=== PATIENT | female | born 1935 | race Caucasian/White ===

== ENCOUNTER 2017-01-18 14:23 | Emergency (ER) | payer OTHER ==
[~2017-01-18] VITALS: Ht 160 cm; Wt 75.0 kg
[~2017-01-18 14:23] MED LIST: ASCO500T8 PO; CA C1TAB28 PO; CALC500T93 PO; COENZYME Q10 21 EACH PO; EZET1TAB35 PO; LISI-467 PO; METF10002 PO; METF500T4 PO; MULT-257 PO; OMEG1CAP34 PO; TRAM50TA2 PO; VIT E PO; [UNRECOGNIZED DRUG - OTHER] PO; magnesium PO; zinc PO
[2017-01-18 14:44] VITALS: BP 144/86
[2017-01-18] MEDS ORDERED: LIDOCAINE 1%, 20ML ONE (15:02)
[2017-01-18] MEDS ORDERED: DIPH,PERTUSS(ACELL),TET VAC/PF 0.5 ML IM-VACC ONE ×2 (15:27→15:30)
[2017-01-18] MEDS ORDERED: LIDOCAINE 1%, 20ML SQ ONE (15:30)
[2017-01-18] MEDS ORDERED: BACITRACIN ZINC OINT 500U/GM, 0.9 GM ONE (16:49)
== END 2017-01-18 17:58 | disposition home or self-care (01) ==
LOC: ED 17:49
DX: S01.81XA Laceration without foreign body of other part of head, initial encounter (principal); S51.812A Laceration without foreign body of left forearm, initial encounter; S50.312A Abrasion of left elbow, initial encounter; I10 Essential (primary) hypertension; E11.9 Type 2 diabetes mellitus without complications; W01.198A Fall on same level from slipping, tripping and stumbling with subsequent striking against other object, initial encounter; Y93.89 Activity, other specified; Y92.89 Other specified places as the place of occurrence of the external cause; Y99.8 Other external cause status
CPT/HCPCS: 12001; 12013; 70450; 70486; 90471; 90715

== ENCOUNTER 2018-10-05 11:54 | Inpatient (IN) | payer MEDICARE ==
[~2018-10-05] VITALS: Ht 160 cm; Wt 81.7 kg
[2018-10-05 11:50] VITALS: BP 159/92
[~2018-10-05 11:54] MED LIST changes: +METF500T17 PO; -METF500T4 PO
[2018-10-05] MEDS ORDERED: CHLORHEXIDINE 15 ML UDC MM PRN (12:30)
[2018-10-05] MEDS ORDERED: INSULIN LISPRO 100 UNITS/ML, PEN SQ-INSULIN SCH (12:30)
[2018-10-05] MEDS ORDERED: VANCOMYCIN PER PHARMACY MC ONE (12:30)
[2018-10-05] MEDS ORDERED: PLEASE ENTER HEIGHT AND WEIGHT MC SCH (13:00)
[2018-10-05 13:04] LABS: BASOPHILS # (AUTO) 0.03 x10^3/uL (0-0.1); BASOPHILS % (AUTO) 0 % (0-1); EOSINOPHILS # (AUTO) 0.18 x10^3/uL (0-0.4); EOSINOPHILS % (AUTO) 2 % (1-7); LYMPHOCYTES # (AUTO) 1.92 x10^3/uL (1-3.4); LYMPHOCYTES % (AUTO) 22 % (22-44); MD NO; MEAN CORPUSCULAR HEMOGLOBIN 34.1 pg (27.0-34.8); MEAN CORPUSCULAR HGB CONC 33.4 g/dL (32.4-35.8); MEAN CORPUSCULAR VOLUME 101.9 fL (80-100); MEAN PLATELET VOLUME 10.7 fL (7.4-10.4); MONOCYTES # (AUTO) 0.68 x10^3/uL (0.2-0.8); MONOCYTES % (AUTO) 8 % (2-9); NEUTROPHILS % (AUTO) 68 % (42-75); PLATELET COUNT 171 x10^3/uL (130-400); RED BLOOD COUNT 4.77 x10^6/uL (3.82-5.3); RED CELL DISTRIBUTION WIDTH 13.4 % (9.6-15.2)
[2018-10-05 13:12] LABS: INTERNATIONAL NORMALIZED RATIO 0.94 (0.93-1.1); PROTHROMBIN TIME 9.9 Seconds (9.6-11.5)
[2018-10-05 13:13] LABS: ALANINE AMINOTRANSFERASE 44 U/L (12-78); ANION GAP 6 mmol/L (5-15); CALCIUM 9.4 mg/dL (8.5-10.1); CHLORIDE 109 mmol/L (98-107); CREATININE 1.06 mg/dL (0.55-1.02)
[2018-10-05 13:15] LABS: ALKALINE PHOSPHATASE 77 U/L (45-117); BILIRUBIN,TOTAL 0.5 mg/dL (0.2-1.0); TOTAL PROTEIN 7.1 g/dL (6.4-8.2)
[2018-10-05 14:15] LABS: HEMOGLOBIN A1C 6.8 % (4.2-6.3)
[2018-10-05] MEDS ORDERED: HEPARIN 25,000 UNITS/500ML PMX 500 ML IV PRN (15:00)
[2018-10-05] MEDS ORDERED: HEPARIN 5,000 UNITS/ML, 1ML IV PRN (15:00)
[2018-10-05] MEDS ORDERED: VANCOMYCIN 1,400 MG in SODIUM CHLORIDE 0.9% 250 ML IV ONE (15:00)
[2018-10-05 15:05] LABS: MICROSCOPIC INDICATED
[2018-10-05 16:00] VITALS: BP 146/75
[2018-10-05] MEDS ORDERED: ACETAMINOPHEN 325 MG TABLET PO PRN (16:30)
[2018-10-05] MEDS ORDERED: hydrALAzine 20 MG/ML, 1ML IV PRN (16:30)
[2018-10-05 16:33] VITALS: BP_SYST 128; BP_SYST 144; BP_DIAS 76; BP_DIAS 87
[2018-10-05 20:49] VITALS: BP 111/78
[2018-10-05] MEDS: SULFAMETH./TRIMETHOPRIM DS 800MG/160MG TABLET PO SCH (22:11)
[2018-10-05] MEDS: SODIUM CHLORIDE FLUSH 10ML SYR IVF SCH (22:11)
[2018-10-05] MEDS: INSULIN LISPRO 100 UNITS/ML, PEN SQ-INSULIN SCH (22:14)
[2018-10-05] MEDS: MUPIROCIN OINT 2%, 22GM TP SCH (22:55)
[2018-10-06] MEDS ORDERED: ALBUMIN HUMAN 5% 500 ML IV PRN (00:30)
[2018-10-06 03:11] VITALS: BP_SYST 116; BP_SYST 133; BP_DIAS 73; BP_DIAS 77
[2018-10-06] MEDS ORDERED: METOPROLOL TARTRATE 25 MG TABLET PO ONE (05:00)
[2018-10-06 05:48] VITALS: BP 165/85
[2018-10-06] MEDS: SULFAMETH./TRIMETHOPRIM DS 800MG/160MG TABLET PO SCH (05:52)
[2018-10-06] MEDS: MUPIROCIN OINT 2%, 22GM TP SCH (05:52)
[2018-10-06] MEDS ORDERED: PAPAVERINE 30 MG/ML, 2ML ONE (06:30)
[2018-10-06] MEDS ORDERED: HEPARIN 1,000 UNITS/ML, 10ML ONE (06:30)
[2018-10-06] MEDS ORDERED: MIDAZOLAM 10MG/2 ML ONE (06:54)
[2018-10-06] MEDS ORDERED: FENTANYL PF 250 MCG/5ML ONE ×4 (06:54)
[2018-10-06] MEDS ORDERED: VASOPRESSIN 20 UNIT/ML, 1ML ONE (07:29)
[2018-10-06] MEDS ORDERED: POTASSIUM CHLORIDE 80 MEQ, SODIUM BICARBONATE 8.4% 10 MEQ, MAGNESIUM SULFATE 0.5 GM, LI... IV PRN (07:30)
[2018-10-06] MEDS ORDERED: MANNITOL PMX 20% 500 ML IVPB PRN (07:30)
[2018-10-06] MEDS ORDERED: DEXMEDETOMIDINE 200 MCG in SODIUM CHLORIDE 0.9% 48 ML IV SCH (07:30)
[2018-10-06] MEDS ORDERED: PHENYLEPHRINE 10 MG in SODIUM CHLORIDE 0.9% 249 ML IV PRN ×2 (07:30→10:31)
[2018-10-06] MEDS ORDERED: REGULAR INSULIN 62.5 UNITS in SODIUM CHLORIDE 0.9% 249.375 ML IV PRN ×2 (07:30→10:31)
[2018-10-06] MEDS ORDERED: CEFUROXIME 1.5 GM in SODIUM CHLORIDE 0.9% 50 ML IVPB PRN (07:30)
[2018-10-06] MEDS ORDERED: VANCOMYCIN 1,400 MG in SODIUM CHLORIDE 0.9% 250 ML IV PRN (07:30)
[2018-10-06] MEDS ORDERED: EPINEPHRINE 2 MG in SODIUM CHLORIDE 0.9% 248 ML IV SCH (07:30)
[2018-10-06] MEDS ORDERED: PAPAVERINE 30 MG/ML, 2ML IVPush ONE (08:13)
[2018-10-06] MEDS ORDERED: HEPARIN 1,000 UNITS/ML, 10ML IV ONE (08:14)
[2018-10-06] MEDS: SODIUM CHLORIDE FLUSH 10ML SYR IVF SCH ×2 (09:00→21:29)
[2018-10-06] MEDS ORDERED: DOCUSATE 100 MG CAPSULE PO SCH (09:00)
[2018-10-06] MEDS: INSULIN LISPRO 100 UNITS/ML, PEN SQ-INSULIN SCH ×6 (09:24→21:00)
[2018-10-06] MEDS ORDERED: PROPOFOL 10 MG/ML, 20ML ONE (10:28)
[2018-10-06] MEDS ORDERED: AMINOCAPROIC ACID 250 MG/ML, 20ML ONE ×2 (10:28)
[2018-10-06] MEDS ORDERED: ROCURONIUM 10MG/ML,5ML ONE ×2 (10:28)
[2018-10-06] MEDS ORDERED: PROTAMINE SULFATE 10 MG/ML, 25ML ONE (10:28)
[2018-10-06] MEDS ORDERED: VASOPRESSIN 50 UNIT in SODIUM CHLORIDE 0.9% 247.5 ML IV PRN (10:31)
[2018-10-06] MEDS ORDERED: NITROGLYCERIN/D5W PMX 250 ML IV PRN (10:31)
[2018-10-06] MEDS ORDERED: DEXMEDETOMIDINE 200 MCG in SODIUM CHLORIDE 0.9% 48 ML IV PRN (10:31)
[2018-10-06] MEDS ORDERED: DOBUTAMINE 250 MG in SODIUM CHLORIDE 0.9% 230 ML IV PRN (10:31)
[2018-10-06] MEDS ORDERED: SODIUM CHLORIDE 0.9% 1,000 ML IV PRN (10:31)
[2018-10-06] MEDS ORDERED: HEPARIN 1,000 UNITS/ML, 30ML ONE (10:57)
[2018-10-06] MEDS ORDERED: LIDOCAINE 2% 100MG/5ML SYRINGE ONE (10:57)
[2018-10-06] MEDS ORDERED: ALBUMIN HUMAN 25% 50 ML ONE (10:58)
[2018-10-06] MEDS ORDERED: EPINEPHRINE 2 MG in SODIUM CHLORIDE 0.9% 248 ML IV PRN (11:00)
[2018-10-06] MEDS ORDERED: SODIUM BICARB 8.4%, 50ML SYRINGE IV PRN (11:00)
[2018-10-06] MEDS ORDERED: MIDAZOLAM 1 MG/ML, 5ML IVPush PRN (11:00)
[2018-10-06] MEDS: KSCALE TO 4.5 IV SCH ×3 (11:00→23:00)
[2018-10-06] MEDS ORDERED: DEXTROSE 4 GM TAB.CHEW PO PRN (11:00)
[2018-10-06] MEDS ORDERED: BISACODYL 5 MG EC TABLET PO PRN (11:00)
[2018-10-06] MEDS ORDERED: ACETAMINOPHEN 650 MG SUPP PR PRN (11:00)
[2018-10-06] MEDS ORDERED: DEXTROSE 50%, 50ML SYRINGE IVPush PRN (11:00)
[2018-10-06] MEDS ORDERED: morphine SULFATE 10 MG/ML, 1ML IVPush PRN (11:00)
[2018-10-06] MEDS ORDERED: GLUCAGON 1 MG IM PRN (11:00)
[2018-10-06] MEDS ORDERED: BISACODYL 10 MG SUPP PR PRN (11:00)
[2018-10-06 11:14] LABS: GLUCOSE BY BLOOD GAS ANALYZER 171 mg/dL (70-110); HEMOGLOBIN BY BLOOD GAS ANALYZ 11.2 g/dL (14.0-18.0)
[2018-10-06] MEDS: CEFUROXIME 1.5 GM in SODIUM CHLORIDE 0.9% 50 ML IVPB SCH ×2 (11:16→22:40)
[2018-10-06] MEDS ORDERED: VANCOMYCIN 1,100 MG in SODIUM CHLORIDE 0.9% 250 ML IVPB ONE (11:30)
[2018-10-06] MEDS: MAGNESIUM SULFATE 1 GM in SODIUM CHLORIDE 0.9% 50 ML IVPB SCH (11:41)
[2018-10-06] MEDS: LACTATED RINGERS 1,000 ML IV PRN ×3 (11:41→17:35)
[2018-10-06] MEDS ORDERED: MORPHINE SULFATE 4 MG/ML, 1ML ONE (13:02)
[2018-10-06] MEDS: ONDANSETRON 2MG/ML, 2ML IVPush PRN (15:44)
[2018-10-06] MEDS: OXYcodone IR 5MG TABLET PO PRN ×3 (15:55→22:40)
[2018-10-06] MEDS: PROCHLORPERAZINE 5 MG/ML, 2ML IVPush PRN (18:52)
[2018-10-06] MEDS: FENTANYL PF 100 MCG/2ML IVPush PRN ×3 (21:27→21:46)
[2018-10-06] MEDS: MUPIROCIN OINT 2%, 22GM NAS SCH (21:29)
[2018-10-07] MEDS: FENTANYL PF 100 MCG/2ML IVPush PRN ×2 (00:09→01:14)
[2018-10-07] MEDS: INSULIN LISPRO 100 UNITS/ML, PEN SQ-INSULIN SCH ×5 (01:27→21:00)
[2018-10-07] MEDS: OXYcodone IR 5MG TABLET PO PRN (02:57)
[2018-10-07] MEDS: KSCALE TO 4.5 IV SCH (05:00)
[2018-10-07] MEDS: ONDANSETRON 2MG/ML, 2ML IVPush PRN (06:02)
[2018-10-07 06:11] LABS: MEAN CORPUSCULAR HEMOGLOBIN 34.1 pg (27.0-34.8); MEAN CORPUSCULAR HGB CONC 33.4 g/dL (32.4-35.8); MEAN CORPUSCULAR VOLUME 102.1 fL (80-100); MEAN PLATELET VOLUME 10.6 fL (7.4-10.4); PLATELET COUNT 134 x10^3/uL (130-400); RED BLOOD COUNT 3.48 x10^6/uL (3.82-5.3); RED CELL DISTRIBUTION WIDTH 13.7 % (9.6-15.2)
[2018-10-07 06:14] LABS: INTERNATIONAL NORMALIZED RATIO 0.96 (0.93-1.1); PROTHROMBIN TIME 10.1 Seconds (9.6-11.5)
[2018-10-07 06:16] LABS: ALBUMIN 2.9 g/dL (3.4-5.0); ANION GAP 10 mmol/L (5-15); CHLORIDE 113 mmol/L (98-107)
[2018-10-07 06:18] LABS: CREATININE 0.97 mg/dL (0.55-1.02)
[2018-10-07 06:31] LABS: BASOPHILS % (AUTO) 0 % (0-1); EOSINOPHILS # (AUTO) 0.01 x10^3/uL (0-0.4); EOSINOPHILS % (AUTO) 0 % (1-7); LYMPHOCYTES # (AUTO) 1.08 x10^3/uL (1-3.4); LYMPHOCYTES % (AUTO) 8 % (22-44); MD SCAN; MONOCYTES # (AUTO) 1.23 x10^3/uL (0.2-0.8); MONOCYTES % (AUTO) 10 % (2-9); NEUTROPHILS % (AUTO) 82 % (42-75)
[2018-10-07] MEDS: PROCHLORPERAZINE 5 MG/ML, 2ML IVPush PRN (07:34)
[2018-10-07] MEDS: MUPIROCIN OINT 2%, 22GM NAS SCH ×2 (09:34→21:03)
[2018-10-07] MEDS: METOPROLOL TARTRATE 25 MG TABLET PO/NG SCH ×2 (09:35→21:02)
[2018-10-07] MEDS: ASPIRIN 81 MG TABLET EC PO SCH (09:35)
[2018-10-07] MEDS: SODIUM CHLORIDE FLUSH 10ML SYR IVF SCH ×2 (09:35→21:03)
[2018-10-07] MEDS: FUROSEMIDE 20 MG/2 ML IV SCH (09:35)
[2018-10-07] MEDS: metFORMIN 500 MG TABLET PO SCH ×2 (09:36→21:01)
[2018-10-07] MEDS: MULTIVITAMIN 1 TABLET PO SCH (09:36)
[2018-10-07] MEDS: HYDROcodone/APAP 5/325 TABLET PO PRN ×4 (09:38→23:57)
[2018-10-07] MEDS: MAGNESIUM SULFATE 1 GM in SODIUM CHLORIDE 0.9% 50 ML IVPB SCH (11:28)
[2018-10-07 13:04] VITALS: BP 128/71
[2018-10-07 19:34] VITALS: BP 145/68
[2018-10-07 21:00] VITALS: BP 140/72
[2018-10-07] MEDS: ATORVASTATIN 40 MG TABLET PO SCH (21:02)
[2018-10-07] MEDS: CHLORHEXIDINE 15 ML UDC MM SCH (21:02)
[2018-10-08 01:14] VITALS: BP 144/76
[2018-10-08 06:17] LABS: ANION GAP 6 mmol/L (5-15); CALCIUM 8.5 mg/dL (8.5-10.1); CHLORIDE 111 mmol/L (98-107); CREATININE 0.73 mg/dL (0.55-1.02)
[2018-10-08 06:18] LABS: BASOPHILS # (AUTO) 0.04 x10^3/uL (0-0.1); BASOPHILS % (AUTO) 0 % (0-1); EOSINOPHILS # (AUTO) 0.13 x10^3/uL (0-0.4); EOSINOPHILS % (AUTO) 1 % (1-7); LYMPHOCYTES # (AUTO) 1.34 x10^3/uL (1-3.4); LYMPHOCYTES % (AUTO) 11 % (22-44); MD NO; MEAN CORPUSCULAR HEMOGLOBIN 33.8 pg (27.0-34.8); MEAN CORPUSCULAR HGB CONC 32.9 g/dL (32.4-35.8); MEAN CORPUSCULAR VOLUME 102.6 fL (80-100); MEAN PLATELET VOLUME 10.8 fL (7.4-10.4); MONOCYTES # (AUTO) 1.17 x10^3/uL (0.2-0.8); MONOCYTES % (AUTO) 10 % (2-9); NEUTROPHILS # (AUTO) 9.33 x10^3/uL (1.8-6.8); NEUTROPHILS % (AUTO) 78 % (42-75); PLATELET COUNT 108 x10^3/uL (130-400); RED BLOOD COUNT 3.59 x10^6/uL (3.82-5.3); RED CELL DISTRIBUTION WIDTH 13.7 % (9.6-15.2)
[2018-10-08 06:58] LABS: INTERNATIONAL NORMALIZED RATIO 0.95 (0.93-1.1)
[2018-10-08 07:24] VITALS: BP 129/76
[2018-10-08] MEDS: INSULIN LISPRO 100 UNITS/ML, PEN SQ-INSULIN SCH ×4 (07:31→21:37)
[2018-10-08] MEDS ORDERED: AMIODARONE 50 MG/ML, 3ML ONE (08:00)
[2018-10-08] MEDS ORDERED: AMIODARONE 50 MG/ML, 3ML IVPush PRN (08:30)
[2018-10-08] MEDS ORDERED: FILTER 0.22 MICRON FOR AMIODARONE IV PRN (08:30)
[2018-10-08] MEDS ORDERED: DILTIAZEM 5 MG/ML, 5ML IVPush ONE (08:30)
[2018-10-08] MEDS ORDERED: AMIODARONE 150 MG in DEXTROSE 5% 100 ML IV ONE (08:30)
[2018-10-08] MEDS ORDERED: DILTIAZEM 125 MG in SODIUM CHLORIDE 0.9% 100 ML IV SCH (08:30)
[2018-10-08] MEDS ORDERED: AMIODARONE 900 MG in DEXTROSE 5% 482 ML IV PRN (08:30)
[2018-10-08 09:00] LABS: MEAN CORPUSCULAR HEMOGLOBIN 32.8 pg (27.0-34.8); MEAN CORPUSCULAR HGB CONC 32.2 g/dL (32.4-35.8); MEAN CORPUSCULAR VOLUME 101.9 fL (80-100); MEAN PLATELET VOLUME 10.1 fL (7.4-10.4); PLATELET COUNT 115 x10^3/uL (130-400); RED CELL DISTRIBUTION WIDTH 14.1 % (9.6-15.2)
[2018-10-08] MEDS: FUROSEMIDE 20 MG/2 ML IV SCH ×2 (09:00→09:46)
[2018-10-08] MEDS: LISINOPRIL 10 MG TABLET PO SCH (09:00)
[2018-10-08] MEDS: MUPIROCIN OINT 2%, 22GM NAS SCH ×2 (09:00→21:35)
[2018-10-08] MEDS: ENOXAPARIN 40 MG/0.4 ML SQ SCH (09:00)
[2018-10-08] MEDS: CHLORHEXIDINE 15 ML UDC MM SCH ×2 (09:00→21:35)
[2018-10-08] MEDS: POTASSIUM CHLORIDE 10 MEQ TABLET.ER PO SCH ×2 (09:00→09:46)
[2018-10-08 09:06] LABS: ALANINE AMINOTRANSFERASE 44 U/L (12-78); ANION GAP 6 mmol/L (5-15); CALCIUM 8.4 mg/dL (8.5-10.1); CHLORIDE 109 mmol/L (98-107); CREATININE 0.65 mg/dL (0.55-1.02)
[2018-10-08 09:08] LABS: ALKALINE PHOSPHATASE 63 U/L (45-117); BILIRUBIN,TOTAL 0.9 mg/dL (0.2-1.0); TOTAL PROTEIN 5.7 g/dL (6.4-8.2)
[2018-10-08] MEDS: SODIUM CHLORIDE FLUSH 10ML SYR IVF SCH ×2 (09:46→21:35)
[2018-10-08] MEDS: MULTIVITAMIN 1 TABLET PO SCH (10:01)
[2018-10-08] MEDS: SULFAMETH./TRIMETHOPRIM DS 800MG/160MG TABLET PO SCH ×2 (10:01→21:35)
[2018-10-08] MEDS: metFORMIN 500 MG TABLET PO SCH ×2 (10:02→21:35)
[2018-10-08] MEDS: OXYcodone IR 5MG TABLET PO PRN (10:02)
[2018-10-08] MEDS: ASPIRIN 81 MG TABLET EC PO SCH (10:16)
[2018-10-08] MEDS: METOPROLOL TARTRATE 25 MG TABLET PO/NG SCH ×2 (10:16→21:36)
[2018-10-08 10:19] LABS: MD YES
[2018-10-08 10:22] LABS: LYMPH#(MANUAL) 0.76 x10^3/uL (1-3.4); LYMPHS% (MANUAL) 6 % (22-44); MONOS#(MANUAL) 0.76 x10^3/uL (0.3-2.7); MONOS% (MANUAL) 6 % (2-9); SEG#(MANUAL) 11.18 x10^3/uL (1.8-6.8); SEGS% (MANUAL) 88 % (42-75)
[2018-10-08 10:24] LABS: <PLATELET ESTIMATE> DECREASED; <PLT MORPHOLOGY> NORMAL PLT MORPH
[2018-10-08] MEDS: MAGNESIUM SULFATE 1 GM in SODIUM CHLORIDE 0.9% 50 ML IVPB SCH (12:53)
[2018-10-08] MEDS: ACETAMINOPHEN 325 MG TABLET PO PRN ×2 (12:54→18:56)
[2018-10-08] MEDS: ATORVASTATIN 40 MG TABLET PO SCH (21:35)
[2018-10-09] MEDS: ACETAMINOPHEN 325 MG TABLET PO PRN ×3 (04:51→21:32)
[2018-10-09 05:52] LABS: BASOPHILS # (AUTO) 0.06 x10^3/uL (0-0.1); BASOPHILS % (AUTO) 1 % (0-1); EOSINOPHILS % (AUTO) 1 % (1-7); LYMPHOCYTES # (AUTO) 1.07 x10^3/uL (1-3.4); LYMPHOCYTES % (AUTO) 11 % (22-44); MD NO; MEAN CORPUSCULAR HGB CONC 33.1 g/dL (32.4-35.8); MEAN CORPUSCULAR VOLUME 102.8 fL (80-100); MEAN PLATELET VOLUME 10.2 fL (7.4-10.4); MONOCYTES # (AUTO) 0.93 x10^3/uL (0.2-0.8); MONOCYTES % (AUTO) 9 % (2-9); NEUTROPHILS # (AUTO) 7.87 x10^3/uL (1.8-6.8); NEUTROPHILS % (AUTO) 79 % (42-75); PLATELET COUNT 127 x10^3/uL (130-400); RED BLOOD COUNT 3.82 x10^6/uL (3.82-5.3); RED CELL DISTRIBUTION WIDTH 13.6 % (9.6-15.2)
[2018-10-09 05:58] LABS: ANION GAP 6 mmol/L (5-15); CALCIUM 8.6 mg/dL (8.5-10.1); CHLORIDE 105 mmol/L (98-107); CREATININE 0.71 mg/dL (0.55-1.02)
[2018-10-09] MEDS: ONDANSETRON 2MG/ML, 2ML IVPush PRN (06:09)
[2018-10-09] MEDS: CHLORHEXIDINE 15 ML UDC MM SCH (08:54)
[2018-10-09] MEDS: AMIODARONE 200 MG TABLET PO SCH ×2 (08:55→21:18)
[2018-10-09] MEDS: MULTIVITAMIN 1 TABLET PO SCH (08:55)
[2018-10-09] MEDS: SULFAMETH./TRIMETHOPRIM DS 800MG/160MG TABLET PO SCH ×2 (08:55→21:19)
[2018-10-09] MEDS: metFORMIN 500 MG TABLET PO SCH ×2 (08:55→21:19)
[2018-10-09] MEDS: METOPROLOL TARTRATE 25 MG TABLET PO/NG SCH ×2 (08:55→21:19)
[2018-10-09] MEDS: CLOPIDOGREL 75 MG TABLET PO SCH (08:55)
[2018-10-09] MEDS: ASPIRIN 81 MG TABLET EC PO SCH (08:55)
[2018-10-09] MEDS: POTASSIUM CHLORIDE 10 MEQ TABLET.ER PO SCH ×2 (08:55→08:57)
[2018-10-09] MEDS: INSULIN LISPRO 100 UNITS/ML, PEN SQ-INSULIN SCH ×4 (08:56→21:00)
[2018-10-09] MEDS: FUROSEMIDE 20 MG/2 ML IV SCH ×2 (08:56→08:57)
[2018-10-09] MEDS: ENOXAPARIN 40 MG/0.4 ML SQ SCH (08:56)
[2018-10-09] MEDS: SODIUM CHLORIDE FLUSH 10ML SYR IVF SCH ×2 (08:56→21:00)
[2018-10-09] MEDS: MUPIROCIN OINT 2%, 22GM NAS SCH ×2 (08:57→21:00)
[2018-10-09] MEDS: LISINOPRIL 10 MG TABLET PO SCH (09:00)
[2018-10-09] MEDS: ATORVASTATIN 40 MG TABLET PO SCH (21:19)
[2018-10-09] MEDS: OXYcodone IR 5MG TABLET PO PRN (23:10)
[2018-10-10 01:39] VITALS: BP 108/70
[2018-10-10 03:46] LABS: BASOPHILS # (AUTO) 0.02 x10^3/uL (0-0.1); BASOPHILS % (AUTO) 0 % (0-1); EOSINOPHILS # (AUTO) 0.19 x10^3/uL (0-0.4); EOSINOPHILS % (AUTO) 2 % (1-7); LYMPHOCYTES # (AUTO) 1.33 x10^3/uL (1-3.4); LYMPHOCYTES % (AUTO) 15 % (22-44); MD NO; MEAN CORPUSCULAR HEMOGLOBIN 33.6 pg (27.0-34.8); MEAN CORPUSCULAR HGB CONC 32.8 g/dL (32.4-35.8); MEAN CORPUSCULAR VOLUME 102.4 fL (80-100); MEAN PLATELET VOLUME 9.8 fL (7.4-10.4); MONOCYTES # (AUTO) 0.83 x10^3/uL (0.2-0.8); MONOCYTES % (AUTO) 10 % (2-9); NEUTROPHILS # (AUTO) 6.31 x10^3/uL (1.8-6.8); NEUTROPHILS % (AUTO) 73 % (42-75); PLATELET COUNT 144 x10^3/uL (130-400); RED BLOOD COUNT 3.68 x10^6/uL (3.82-5.3); RED CELL DISTRIBUTION WIDTH 13.4 % (9.6-15.2)
[2018-10-10 03:55] LABS: ANION GAP 6 mmol/L (5-15); CALCIUM 8.1 mg/dL (8.5-10.1); CHLORIDE 107 mmol/L (98-107); CREATININE 0.84 mg/dL (0.55-1.02)
[2018-10-10] MEDS: ACETAMINOPHEN 325 MG TABLET PO PRN ×4 (03:57→17:25)
[2018-10-10] MEDS: MUPIROCIN OINT 2%, 22GM NAS SCH ×2 (08:28→21:27)
[2018-10-10] MEDS: INSULIN LISPRO 100 UNITS/ML, PEN SQ-INSULIN SCH ×4 (08:28→21:28)
[2018-10-10] MEDS: FUROSEMIDE 20 MG/2 ML IV SCH (08:30)
[2018-10-10] MEDS: METOPROLOL TARTRATE 25 MG TABLET PO/NG SCH ×2 (08:30→21:28)
[2018-10-10] MEDS: metFORMIN 500 MG TABLET PO SCH ×2 (08:30→21:27)
[2018-10-10] MEDS: AMIODARONE 200 MG TABLET PO SCH ×2 (08:30→21:27)
[2018-10-10] MEDS: CLOPIDOGREL 75 MG TABLET PO SCH (08:30)
[2018-10-10] MEDS: POTASSIUM CHLORIDE 10 MEQ TABLET.ER PO SCH ×2 (08:30→08:31)
[2018-10-10] MEDS: SULFAMETH./TRIMETHOPRIM DS 800MG/160MG TABLET PO SCH ×2 (08:30→21:28)
[2018-10-10] MEDS: MULTIVITAMIN 1 TABLET PO SCH (08:31)
[2018-10-10] MEDS: ENOXAPARIN 40 MG/0.4 ML SQ SCH (08:31)
[2018-10-10] MEDS: SODIUM CHLORIDE FLUSH 10ML SYR IVF SCH ×2 (08:31→21:27)
[2018-10-10] MEDS: ASPIRIN 81 MG TABLET EC PO SCH (08:31)
[2018-10-10] MEDS: LISINOPRIL 20 MG TABLET PO SCH (08:31)
[2018-10-10 08:40] VITALS: BP 114/73
[2018-10-10] MEDS ORDERED: LIDODERM 5% PATCH TD ONE (12:30)
[2018-10-10 13:19] VITALS: BP 134/73
[2018-10-10] MEDS: ONDANSETRON 2MG/ML, 2ML IVPush PRN (21:26)
[2018-10-10] MEDS: HYDROcodone/APAP 5/325 TABLET PO PRN (21:27)
[2018-10-10] MEDS: ATORVASTATIN 40 MG TABLET PO SCH (21:28)
[2018-10-10 21:59] VITALS: BP 153/90
[2018-10-11] MEDS ORDERED: LIDODERM REMOVE PATCH NOTE XX SCH (01:00)
[2018-10-11 01:02] VITALS: BP 145/73
[2018-10-11] MEDS: HYDROcodone/APAP 5/325 TABLET PO PRN (02:12)
[2018-10-11] MEDS: ONDANSETRON 2MG/ML, 2ML IVPush PRN (02:12)
[2018-10-11 04:50] LABS: BASOPHILS # (AUTO) 0.04 x10^3/uL (0-0.1); BASOPHILS % (AUTO) 1 % (0-1); EOSINOPHILS # (AUTO) 0.33 x10^3/uL (0-0.4); EOSINOPHILS % (AUTO) 4 % (1-7); LYMPHOCYTES # (AUTO) 1.31 x10^3/uL (1-3.4); LYMPHOCYTES % (AUTO) 14 % (22-44); MD NO; MEAN CORPUSCULAR HEMOGLOBIN 33.8 pg (27.0-34.8); MEAN CORPUSCULAR HGB CONC 32.8 g/dL (32.4-35.8); MEAN CORPUSCULAR VOLUME 102.9 fL (80-100); MEAN PLATELET VOLUME 9.3 fL (7.4-10.4); MONOCYTES # (AUTO) 0.93 x10^3/uL (0.2-0.8); MONOCYTES % (AUTO) 10 % (2-9); NEUTROPHILS # (AUTO) 6.58 x10^3/uL (1.8-6.8); NEUTROPHILS % (AUTO) 72 % (42-75); PLATELET COUNT 164 x10^3/uL (130-400); RED BLOOD COUNT 3.62 x10^6/uL (3.82-5.3); RED CELL DISTRIBUTION WIDTH 13.3 % (9.6-15.2)
[2018-10-11 05:00] LABS: ANION GAP 5 mmol/L (5-15); CALCIUM 8.4 mg/dL (8.5-10.1); CHLORIDE 109 mmol/L (98-107)
[2018-10-11 07:31] VITALS: BP 109/74
[2018-10-11] MEDS: INSULIN LISPRO 100 UNITS/ML, PEN SQ-INSULIN SCH ×2 (08:10→12:08)
[2018-10-11] MEDS ORDERED: CLOP75TA PO (09:27)
[2018-10-11] MEDS ORDERED: HYDR-3237 PO (09:27)
[2018-10-11] MEDS ORDERED: ASPI81TA45 PO (09:27)
[2018-10-11] MEDS ORDERED: Lidoderm Remove Patch XX (09:27)
[2018-10-11] MEDS ORDERED: POTA10TA5 PO (09:27)
[2018-10-11] MEDS ORDERED: ATOR40TA78 PO (09:27)
[2018-10-11] MEDS ORDERED: AMIO200T42 PO (09:27)
[2018-10-11] MEDS ORDERED: FURO-93 PO (09:27)
[2018-10-11] MEDS ORDERED: METO25TA35 PO/NG (09:27)
[2018-10-11] MEDS: ACETAMINOPHEN 325 MG TABLET PO PRN (09:46)
[2018-10-11] MEDS: ENOXAPARIN 40 MG/0.4 ML SQ SCH (09:46)
[2018-10-11] MEDS: CLOPIDOGREL 75 MG TABLET PO SCH (09:46)
[2018-10-11] MEDS: SULFAMETH./TRIMETHOPRIM DS 800MG/160MG TABLET PO SCH (09:47)
[2018-10-11] MEDS: metFORMIN 500 MG TABLET PO SCH (09:47)
[2018-10-11] MEDS: MULTIVITAMIN 1 TABLET PO SCH (09:47)
[2018-10-11] MEDS: AMIODARONE 200 MG TABLET PO SCH (09:47)
[2018-10-11] MEDS: POTASSIUM CHLORIDE 10 MEQ TABLET.ER PO SCH ×2 (09:47→09:48)
[2018-10-11] MEDS: METOPROLOL TARTRATE 25 MG TABLET PO/NG SCH (09:47)
[2018-10-11] MEDS: MUPIROCIN OINT 2%, 22GM NAS SCH (09:48)
[2018-10-11] MEDS: ASPIRIN 81 MG TABLET EC PO SCH (09:48)
[2018-10-11] MEDS: SODIUM CHLORIDE FLUSH 10ML SYR IVF SCH (09:48)
[2018-10-11] MEDS: FUROSEMIDE 20 MG/2 ML IV SCH (09:48)
[2018-10-11] MEDS: LISINOPRIL 20 MG TABLET PO SCH (09:48)
== END 2018-10-11 12:45 | disposition home health service (06) | DRG 235 ==
LOC: 5SO 11:54 → CSU 10-06 07:43 → 5SO 10-07 12:39 → CSU 10-08 08:31 → 5SO 10-09 18:16 → DCLOUNGE 10-11 12:15
PROVIDERS: ADMIT Hospitalist; ATTEND Hospitalist
PROC: 03HY32Z Insertion of Monitoring Device into Upper Artery, Percutaneous Approach (ICD-10-PCS; 2018-10-06)
PROC: 06BQ4ZZ Excision of Left Saphenous Vein, Percutaneous Endoscopic Approach (ICD-10-PCS; 2018-10-06)
PROC: 02HV33Z Insertion of Infusion Device into Superior Vena Cava, Percutaneous Approach (ICD-10-PCS; 2018-10-06)
PROC: 5A1221Z Performance of Cardiac Output, Continuous (ICD-10-PCS; 2018-10-06)
PROC: 021109W Bypass Coronary Artery, Two Arteries from Aorta with Autologous Venous Tissue, Open Approach (ICD-10-PCS; principal; 2018-10-06 07:00)
DX: I25.119 Atherosclerotic heart disease of native coronary artery with unspecified angina pectoris (principal); N17.0 Acute kidney failure with tubular necrosis; I47.2 Ventricular tachycardia; N39.0 Urinary tract infection, site not specified; E78.00 Pure hypercholesterolemia, unspecified; D69.6 Thrombocytopenia, unspecified; E11.9 Type 2 diabetes mellitus without complications; E78.5 Hyperlipidemia, unspecified; F17.210 Nicotine dependence, cigarettes, uncomplicated; Z96.643 Presence of artificial hip joint, bilateral; I11.9 Hypertensive heart disease without heart failure; I48.91 Unspecified atrial fibrillation; M19.90 Unspecified osteoarthritis, unspecified site; Z79.02 Long term (current) use of antithrombotics/antiplatelets; Z82.49 Family history of ischemic heart disease and other diseases of the circulatory system; Z83.3 Family history of diabetes mellitus; Z90.710 Acquired absence of both cervix and uterus; Z79.899 Other long term (current) drug therapy; Z79.84 Long term (current) use of oral hypoglycemic drugs; Z79.82 Long term (current) use of aspirin; Z88.8 Allergy status to other drugs, medicaments and biological substances
CPT/HCPCS: 36415; 36600; 71045; 71046; 80048; 80053; 81001; 82040; 82330; 82800; 82803; 82810; 82947; 82962; 83036; 83735; 84132; 84295; 85014; 85018; 85025; 85049; 85347; 85520; 85610; 85730; 86850; 86900; 86923; 87081; 93005; 93306; 93312; 93321; 93325; 93880; 94002; G0378; J0697; J1644; J1650; J1815; J2250; J2405; J2704; J2720; J3010; J3370; J3475; J3480; P9045; P9047; C1751; C1760; J0171; J0282; J0780; J1940; J2270; J2370; J2440; J7050; J7060; J7120

== ENCOUNTER 2019-04-26 19:39 | Emergency (ER) | payer MEDICARE ==
[~2019-04-26] VITALS: Ht 160 cm; Wt 70.0 kg
[~2019-04-26 19:39] MED LIST changes: +AMIO200T42 PO; +ASPI81TA45 PO; +ATOR40TA78 PO; +CLOP75TA PO; +FURO-93 PO; +HYDR-3237 PO; +Lidoderm Remove Patch XX; +METO25TA35 PO/NG; +POTA10TA5 PO
--- NOTE | 2019-04-26 20:19 | NUR ---
PT TO ED FOR HIGH BP. PT STATES WAS OVER 200 AT HOME. PT REPORTS ASSOCIATED CATES THAT RESOLVED WITH [employer] ENDLESS TRACK VEHICLE. PT CONNECTED TO MONITORS. BP 168/86, VSS. NO NEEDS EXPRESSED. CALL LIGHT WITHIN REACH. AWAITING EDMD ASSESSMENT.
--- NOTE | 2019-04-26 21:01 | NUR ---
Pt bedside report from Ita maria. This rn to assume care of pt. Awaiting results. No immediate needs from pt.
[2019-04-26 21:10] VITALS: BP 148/87
[2019-04-26 21:11] LABS: BASOPHILS # (AUTO) 0.04 x10^3/uL (0-0.1); BASOPHILS % (AUTO) 0 % (0-1); EOSINOPHILS # (AUTO) 0.23 x10^3/uL (0-0.4); EOSINOPHILS % (AUTO) 2 % (1-7); LYMPHOCYTES # (AUTO) 2.95 x10^3/uL (1-3.4); LYMPHOCYTES % (AUTO) 31 % (22-44); MD NO; MEAN CORPUSCULAR HEMOGLOBIN 33.2 pg (27.0-34.8); MEAN CORPUSCULAR HGB CONC 32.6 g/dL (32.4-35.8); MEAN CORPUSCULAR VOLUME 102.1 fL (80-100); MEAN PLATELET VOLUME 10.1 fL (7.4-10.4); MONOCYTES % (AUTO) 10 % (2-9); NEUTROPHILS # (AUTO) 5.38 x10^3/uL (1.8-6.8); NEUTROPHILS % (AUTO) 57 % (42-75); PLATELET COUNT 191 x10^3/uL (130-400); RED BLOOD COUNT 4.66 x10^6/uL (3.82-5.3); RED CELL DISTRIBUTION WIDTH 13.4 % (9.6-15.2)
[2019-04-26 21:24] LABS: ALBUMIN 3.7 g/dL (3.4-5.0); ANION GAP 6 mmol/L (5-15); CALCIUM 9.8 mg/dL (8.5-10.1); CHLORIDE 108 mmol/L (98-107); CREATININE 1.05 mg/dL (0.55-1.02)
[2019-04-26 21:28] LABS: TROPONIN I < 0.015 ng/mL (0.000-0.045)
[2019-04-26 21:34] LABS: T4 (THYROXINE) 9.6 mcg/dL (4.8-13.9)
== END 2019-04-26 22:06 | disposition home or self-care (01) ==
LOC: ED 21:59
DX: I10 Essential (primary) hypertension (principal); E11.9 Type 2 diabetes mellitus without complications; E03.9 Hypothyroidism, unspecified; Z87.891 Personal history of nicotine dependence
CPT/HCPCS: 36415; 70450; 71045; 80048; 82040; 83735; 84436; 84443; 84484; 85025; 93005; 99284